=== PATIENT | male | born 1960 | race Hispanic/Latino ===

== ENCOUNTER 2016-12-29 13:28 | Emergency (ER) | payer SELFPAY ==
[2016-12-29] MEDS ORDERED: SODIUM CHLORIDE 0.9% 1,000 ML ONE (14:50)
== END 2016-12-29 16:15 | disposition home or self-care (01) ==
LOC: ER 14:01
DX: Z76.0 Encounter for issue of repeat prescription (principal); M17.0 Bilateral primary osteoarthritis of knee; M19.072 Primary osteoarthritis, left ankle and foot; M19.071 Primary osteoarthritis, right ankle and foot; E11.65 Type 2 diabetes mellitus with hyperglycemia; Z79.4 Long term (current) use of insulin; Z79.84 Long term (current) use of oral hypoglycemic drugs; Z79.899 Other long term (current) drug therapy; F17.210 Nicotine dependence, cigarettes, uncomplicated
CPT/HCPCS: 36415; 80053; 82947; 85025; 96360